=== PATIENT | female | born 1955 | race Caucasian/White ===

== ENCOUNTER 2016-10-22 18:43 | Emergency (ER) | payer OTHER ==
[~2016-10-22] VITALS: Ht 165.1 cm; Wt 77.1 kg
[~2016-10-22 18:43] MED LIST: ALLEGRA ALLERG180 M1 PO; CELEXA40 MG PO; CRESTOR 10MG10 MG PO; DIOVAN 160 MG160 MG PO; EFFEXOR XR150 M1 PO; FERROUS SULFAT325 M1 PO; FISH OIL 1,2001 EAC2 PO; LAMICTAL100 M2 PO; METFORMIN HCL500 M3 PO; MIRALAX17 GM PO; PRILOSEC OTC20 M1 PO; SENNA CON/DOCUS1 TAB PO; VICTOZA 3-0.6 MG/0.1 SC; VITAB121000 PO; VITAMIN D250000 UNIT PO; ZYPREXA7.5 MG PO
[2016-10-22 18:49] VITALS: BP 153/81
--- NOTE | 2016-10-22 19:09 | ED NECK/BACK PAIN COMPLAINT ---
History of Present Illness General Chief Complaint: Low Back Pain/Injury Stated Complaint: BACK PAIN Source: patient Exam Limitations: no limitations Vital Signs & Intake/Output Vital Signs & Intake/Output Vital Signs Date Time Temp Pulse Resp B/P B/P Pulse O2 O2 Flow FiO2 Mean Ox Delivery Rate 10/22 1849 97.9 93 18 153/81 100 Room Air ED Intake and Output 10/23 0000 10/22 1200 Intake Total Output Total Balance Patient 170 lb Weight Weight Reported by Patient Measurement Method Allergies Coded Allergies: MDX - Amoxicillin (AMOXICILLIN) (SWELLING AND HIVES ALL OVER 10/16/11) Triage Note: PT TO ED FOR R SIDED LOW BACK PAIN RADIATING DOWN INTO RIGHT LEG, SEES PAIN MANAGEMENT FOR SPINAL STENOSIS, SAW PAIN MANAGEMENT DOC YESTERDAY "AND ITS NOT BETTER" Triage Nurses Notes Reviewed? yes Onset: Gradual Duration: constant Timing: recent history Quality/Severity: severe, radiation Location: paraspinous muscles Radiation: buttocks, upper legs, lower legs HPI: Patient is a 61-year-old female with a past medical history of chronic back pain lumbar radiculopathy and spinal stenosis where she is treated with pain management by Dr. MITCHELL where she states that 4 days ago she woke up on Tuesday with worsening back pain to the right para lumbar muscular region with radiation down her right leg where she states that the symptoms of location have been chronic over the severity is much worse the patient presents to the emergency room with continuing back pain. Patient was evaluated by pain management yesterday received cortisone injections to her lumbar spine region and states that she feels no better your patient states that she discontinued using her narcotic medication prescribed by her pain management because "they don't do anything" patient denies any mechanism injury trauma or falls. Denies any bowel or bladder incontinence or saddle paresthesia denies any lower extremity paresthesia Patient does state that pain management referred patient to spinal specialist Dr. Navarro where she will established for surgical evaluation (RACIEL HOLLEY) Reconcile Medications Citalopram Hydrobromide (Celexa) 40 MG TABLET 1 TAB PO DAILY MOOD (Reported) Citalopram Hydrobromide (Citalopram HBr) 40 MG TABLET 1 TAB PO DAILY MENTAL HEALTH (Reported) Cyanocobalamin (Vitamin B-12) 1,000 MCG TABLET 2 TAB PO DAILY SUPPLEMENT ( Reported) Docusate Sodium/Senna (Senna S) 50 MG/8.6 MG TAB 1 TAB PO BID PRN CONSTIPATION ERGOCALCIFEROL (VITAMIN D2) (Drisdol) 50,000 UNIT CAPSULE 1 CAP PO QW BONE HEALTH (Reported) Estradiol 1 MG TABLET 1 TAB PO DAILY SUPPLEMENT (Reported) Ferrous Sulfate 325 MG TAB 1 TAB PO TID IRON DEFICIENCY ANEMIA PLEASE TAKE WITH CITRIC JUICES. PLEASE TAKE STOOL SOFTENERS WITH IRON. Fexofenadine Hydrochloride (Jenny) 180 MG TAB 1 TAB PO DAILY PRN ALLERGIES (Reported) Hydrocodone/Acetaminophen (Hydrocodon-Acetaminophn 10-325) 10 MG-325 MG TABLET 1 TAB PO TIDPRN PAIN CONTROL (Reported) Ketorolac Tromethamine 10 MG TABLET 1 TAB PO TID PRN PAIN Lamotrigine (Lamictal (Green)) 25 MG (84)-100 MG (14) TAB.DS.PK 2 TAB PO DAILY MOOD (Reported) Liraglutide (Victoza 3-Mark) 0.6 MG/0.1 ML (18 MG/3 ML) PEN.INJCTR 1.2 mg SC DAILY BLOOD SUGAR (Reported) hold: change to insulin Metformin Hydrochloride (Metformin ER) [address] 2 TAB PO DAILY BLOOD SUGAR (Reported) Olanzapine (Zyprexa) 7.5 MG TAB 1 TAB PO DAILY MOOD (Reported) Olanzapine 5 MG TABLET 1 TAB PO QPM MENTAL HEALTH (Reported) OMEGA-3 FATTY ACIDS/FISH OIL (Fish Oil 1,200 MG Softgel) 360 MG-1,200 MG CAPSULE 2 TAB PO DAILY SUPPLEMENT (Reported) Omeprazole (Prilosec) 20 MG ECC 1 TAB PO DAILY ACID REFLUX (Reported) Polyethylene Glycol 3350 (Miralax) 17 GRAM/DOSE POWDER 17 GM PO DAILY PRN CONSTIPATION mix with water, juice, soda, coffee or tea Rosuvastatin Calcium (Crestor) 10 MG TABLET 1 TAB PO DAILY CHOLESTROL ( Reported) Rosuvastatin Calcium (Crestor) 20 MG TABLET 1 TAB PO DAILY HIGH CHOLESTROL ( Reported) Valsartan (Diovan) 160 MG TABLET 1 TAB PO DAILY BP (Reported) Valsartan/Hydrochlorothiazide (Valsartan-Hctz 320-25 MG Tab) 320 MG-25 MG TABLET 1 TAB PO DAILY HIGH BLOOD PRESSURE (Reported) VENLAFAXINE HCL (Effexor XR) 150 MG CAP.ER.24H 2 CAP PO DAILY MOOD (Reported) (FIDELIA BOWMAN,GEN Li) Past History Travel History Traveled to [place] past 21 day No Medical History Any Pertinent Medical History? see below for history Neurological: HEADACHES EENT: NONE Cardiovascular: hypertension, hyperlipidemia Respiratory: NONE Gastrointestinal: NONE Hepatic: NONE Renal: NONE Musculoskeletal: SPINAL STENOSIS Psychiatric: bipolar disease Endocrine: NIDDM Blood Disorders: NONE Cancer(s): NONE Surgical History Surgical History: non-contributory Psychosocial History Who do you live with Patient/Self What is your primary language Georgian Tobacco Use: Never used ETOH Use: occasional use Illicit Drug Use: denies illicit drug use Family History Hx Contributory? No (RACIEL HOLLEY) Review of Systems Review of Systems Constitutional: Reports: no symptoms. Eyes: Reports: no symptoms. Ears, Nose, Throat, Mouth: Reports: no symptoms. Respiratory: Reports: no symptoms. Cardiovascular: Reports: no symptoms. Gastrointestinal/Abdominal: Reports: no symptoms. Musculoskeletal: Reports: see HPI, back pain. Skin: Reports: no symptoms. Neurological/Psychological: Reports: no symptoms. All Other Systems: Reviewed and Negative (RACIEL HOLLEY) Physical Exam Physical Exam General Appearance: no apparent distress, alert, comfortable Neck: normal inspection, supple, full range of motion Straight Leg Raising: Right: Pain at ____ degrees (60). Left: Pain at ____ degrees (60). Comments: Well-developed well-nourished person in no acute distress HEENT: Normal EENT exam, Neck: Supple, no lymphadenopathy, normal range of motion without pain or tenderness Back: Normal inspection, right lateral muscular point tenderness noted, decreased active range of motion noted no central spinous tenderness Abdomen: Soft, nontender nondistended, no appreciable organomegaly. Normal bowel sounds. No ascites Extremity: No edema, no calf tenderness to palpation, normal and equal pulses. Bilateral lower extremity myotomes dermatomes DTRs intact Neuro: Alert oriented x3, motor sensory normal, Skin: No appreciable rash on exposed skin, skin is warm and dry. Psych: Mood and affect is normal, memory and judgment is normal. (RACIEL HOLLEY) Progress Differential Diagnosis: aortic dissection, C spine injury, carotid dissection, cauda equina syn, herniated disc, myofascial strain, pyelo/UTI, sciatica, spinal cord inj, thoracic outlet syn, T/L spine injury, ureterolithiasis Plan of Care: Current Medications Sig/Maeve Start time Last Medication Dose Stop Time Status Admin Dexamethasone 4 MG ONCE ONE 10/23 1999 AC (Decadron) 10/22 2000 Hydromorphone HCl 2 MG ONCE ONE 10/23 1999 AC (Dilaudid) 10/22 2000 Ketorolac 30 MG ONCE ONE 10/23 1999 AC Tromethamine 10/22 2000 (Toradol) No concerns of CUADA EQUINA Patient on inspection has no concerns of local infection due to the injection sites of the lumbar spine. Due to history of present illness and exam findings patient most likely has concerns of acute on chronic exacerbation of lumbar radiculopathy. Bilateral lower extremity was neurovascularly intact. (RACIEL HOLLEY) Departure Departure Disposition: HOME OR SELF CARE Condition: Stable Clinical Impression Primary Impression: Lumbar radiculitis Referrals: JUAN M BOWMAN,MARTIR (PCP/Family) Additional Instructions: As discussed continue home medications as directed especially your pain medications. Begin the prescription and ketorolac for pain and inflammation. prescription is waiting a [facility] pharmacy. Follow up on Tuesday with your pain management doctor and your spinal specialist, JESSICA MADRID. If symptoms worsen return to emergency room Departure Forms: Customer Survey General Discharge Information Prescriptions: Current Visit Scripts Ketorolac Tromethamine 1 TAB PO TID PRN PAIN #12 TAB (RACIEL HOLLEY) PA/[employer] Co-Sign Statement Statement: ED Attending supervision documentation- [] I saw and evaluated the patient. I have also reviewed all the pertinent lab results and diagnostic results. I agree with the findings and the plan of care as documented in the PA's/[employer]PER's documentation. [x] I have reviewed the ED Record and agree with the PA's/[employer]'s documentation. [] Additions or exceptions (if any) to the PAs/[employer] CH[employer]PER's note and plan are summarized below: [] (FIDELIA BOWMAN,GEN Li)
[2016-10-22] MEDS ORDERED: KETOROLAC TROME10 M1 PO (19:55)
[2016-10-22] MEDS ORDERED: VALSARTAN-HCTZ1 EAC3 PO (20:04)
[2016-10-22] MEDS ORDERED: HYDROCODON-ACE1 EAC1 PO (20:04)
[2016-10-22] MEDS ORDERED: CRESTOR20 M2 PO (20:06)
[2016-10-22] MEDS ORDERED: OLANZAPINE5 M2 PO (20:06)
[2016-10-22] MEDS ORDERED: ESTRADIOL1 M1 PO (20:07)
[2016-10-22] MEDS ORDERED: CITALOPRAM HBR40 MG PO (20:07)
[2016-10-25] MEDS ORDERED: GLIMEPIRIDE2 MG PO (11:27)
[2016-10-25] MEDS ORDERED: GABAPENTIN100 M2 PO (11:30)
[2016-10-25] MEDS ORDERED: NEURONTIN300 M1 PO (12:18)
[2016-10-25] MEDS ORDERED: CYCLOBENZAPRINE10 M1 PO (12:18)
== END 2016-10-22 20:14 ==
LOC: ERH 18:43
DX: M54.16 Radiculopathy, lumbar region (principal)
CPT/HCPCS: 96372; J1100; J1885